=== PATIENT | female | born 2000 | race Caucasian/White ===

== ENCOUNTER 2023-09-15 22:37 | Emergency (ER) | payer MEDICAID ==
[~2023-09-15] VITALS: Ht 160 cm; Wt 88.6 kg
[~2023-09-15 22:37] MED LIST: ONDA8TAB9 PO
[2023-09-15 22:59] VITALS: BP 132/67; PULSE 101; RESP 20; TEMP 97.3; O2SAT 100
[2023-09-15] MEDS ORDERED: clindamycin 150mg capsule PO ONE (23:50)
[2023-09-15] MEDS ORDERED: CLIN300C54 PO (23:59)
[2023-09-15] MEDS ORDERED: DOXY-356 PO (23:59)
== END 2023-09-16 00:12 | disposition home or self-care (01) ==
LOC: ER 22:38
DX: S61.532A Puncture wound without foreign body of left wrist, initial encounter (principal); Z88.0 Allergy status to penicillin; Z79.899 Other long term (current) drug therapy; W55.01XA Bitten by cat, initial encounter; Y93.89 Activity, other specified; Y92.89 Other specified places as the place of occurrence of the external cause; Y99.8 Other external cause status
CPT/HCPCS: 99283

== ENCOUNTER 2024-06-19 15:29 | Emergency (ER) | payer MEDICAID ==
[~2024-06-19] VITALS: Ht 152.4 cm; Wt 68.2 kg
[2024-06-19 17:00] LABS: BASOPHILS % (AUTO) 0.3 % (0-1); EOSINOPHILS # (AUTO) 0.1 X10'3 (0-0.9); EOSINOPHILS % (AUTO) 1.4 % (0-6); HEMATOCRIT 37.7 % (35.0-45.0); HEMOGLOBIN 12.6 g/dl (12.0-16.0); LYMPHOCYTES # (AUTO) 0.4 X10'3 (1.1-4.8); LYMPHOCYTES % (AUTO) 5.7 % (21-51); MEAN CORPUSCULAR HEMOGLOBIN 29.6 PG (27.0-31.0); MEAN CORPUSCULAR HGB CONC 33.4 g/dL (33.0-36.5); MEAN CORPUSCULAR VOLUME 88.7 FL (78-98); MEAN PLATELET VOLUME 8.8 FL (7.4-10.4); MONOCYTES # (AUTO) 0.6 X10'3 (0-0.9); MONOCYTES % (AUTO) 9.8 % (2-12); NEUTROPHILS # (AUTO) 5.2 X10'3 (1.8-7.7); NEUTROPHILS % (AUTO) 82.8 % (42-75); PLATELET COUNT 192 X10'3 (140-440); RED BLOOD COUNT 4.25 X10'6 (4.20-5.60); RED CELL DISTRIBUTION WIDTH 13.5 % (11.5-14.5); WHITE BLOOD COUNT 6.3 X10'3 (4.5-11.0)
[2024-06-19 17:04] LABS: ALBUMIN 3.5 G/DL (3.4-5.0); ANION GAP 9 (8-16); BLOOD UREA NITROGEN 10 MG/DL (7-18); BUN/CREATININE RATIO 14.1 (10.0-20.0); CHLORIDE 105 MMOL/L (99-107); CREATININE 0.71 MG/DL (0.40-0.90); GLUCOSE 99 MG/DL (70-104); POTASSIUM 4.4 MMOL/L (3.5-5.1); SODIUM 140 MMOL/L (135-145); TOTAL CARBON DIOXIDE 25.7 MMOL/L (24-32); eCRCL 88 ML/MIN; eGFR > 90 ML/MIN
[2024-06-19 17:06] LABS: STREP A SCREEN NEGATIVE (Neg)
[2024-06-19] MEDS: normal saline 1000ml 1,000 ML IV ONE ×2 (17:40→19:13)
[2024-06-19] MEDS: acetaminophen 1,000mg/100ml IV 100 ML IV ONE (17:40)
[2024-06-19 17:43] LABS: BILIRUBIN,URINE NEGATIVE (Neg); CLARITY,URINE CLEAR (Clear); COLOR,URINE STRAW (Yellow); GLUCOSE, URINE NEGATIVE (Neg); KETONES,URINE NEGATIVE (Neg); LEUKOCYTE ESTERASE ,URINE NEGATIVE (Neg); NITRITES, URINE NEGATIVE (Neg); OCCULT BLOOD,URINE NEGATIVE (Neg); PH,URINE 6.5 (4.8-8.0); PROTEIN,URINE NEGATIVE (Neg); UROBILINOGEN,URINE 0.2 E.U/dL (0.2-1.0)
[2024-06-19 18:04] LABS: UA COLLECTION TYPE NON-SPECIFIED
--- NOTE | 2024-06-19 20:19 | NUR ---
PRESSURE BAG APPLIED TO NS.
--- NOTE | 2024-06-19 20:30 | NUR ---
22G IV REMOVED FROM RIGHT HAND.
[2024-06-19 20:33] VITALS: BP 105/65; PULSE 104; RESP 20; TEMP 99; O2SAT 98
== END 2024-06-19 20:35 | disposition home or self-care (01) ==
LOC: ER 15:30
DX: R05.9 Cough, unspecified (principal); Z20.822 Contact with and (suspected) exposure to COVID-19; J02.9 Acute pharyngitis, unspecified; R50.9 Fever, unspecified; Z88.0 Allergy status to penicillin; Z79.899 Other long term (current) drug therapy
CPT/HCPCS: 36415; 80048; 81003; 84145; 85025; 87081; 87811; 87880; 96361; 96374; 99285; J0131; J7030